=== PATIENT | female | born 1955 | race Caucasian/White ===

== ENCOUNTER 2017-01-03 10:43 | Emergency (ER) | payer BC ==
[2017-01-03] MEDS: SODIUM CHLORIDE 0.9% FLUSH 10 ML SOL IV PRN ×2 (11:00→11:20)
[2017-01-03 11:09] VITALS: TEMP 96.1
[2017-01-03] MEDS ORDERED: ONDANSETRON HCL 4 MG/2 ML SOL IV ONE (11:12)
[2017-01-03] MEDS ORDERED: LORAZEPAM 2 MG/ML SOL IV ONE (11:12)
[2017-01-03] MEDS ORDERED: LORAZEPAM 2 MG/ML SOL ONE (11:17)
[2017-01-03] MEDS ORDERED: ONDANSETRON HCL 4 MG/2 ML SOL ONE (11:17)
[2017-01-03 12:27] VITALS: RESP 20
[2017-01-03 12:29] VITALS: BP 134/63; PULSE 68; O2SAT 95
== END 2017-01-03 12:24 | disposition home or self-care (01) ==
LOC: ED 10:43
DX: F41.9 Anxiety disorder, unspecified (principal); R11.2 Nausea with vomiting, unspecified
CPT/HCPCS: 99285 ×3; J2060; J2405; 93005; 96374; 96375; 99283

== ENCOUNTER 2018-12-14 17:21 | Emergency (ER) | payer BC, OTHER ==
[2018-12-14 17:49] VITALS: BP 161/74; PULSE 78; RESP 18; TEMP 97.2; O2SAT 100
== END 2018-12-14 18:43 | disposition home or self-care (01) | DRG 605 ==
LOC: ED 17:21
DX: S61.217A Laceration without foreign body of left little finger without damage to nail, initial encounter (principal); S61.215A Laceration without foreign body of left ring finger without damage to nail, initial encounter; X58.XXXA Exposure to other specified factors, initial encounter
CPT/HCPCS: 12002; 73130; 99282; G0168; A6402